=== PATIENT | female | born 1950 ===

== ENCOUNTER 2020-09-10 08:49 | Day surgery (SDC) | payer BC ==
[~2020-09-10] VITALS: Ht 157.5 cm; Wt 69.9 kg
[~2020-09-10 08:49] MED LIST: Flonase 0.05% N16 GM; GABA300 PO; LEFL20 PO; LOSARTAN-HCTZ1 EACH PO; METF500 PO; MONT10T PO; OCUVITE BLUE L1 EACH PO; ZOCOR20 MG PO
[2020-09-10] MEDS ORDERED: ALLEGRA ALLERG180 MG PO (09:37)
[2020-09-10] MEDS ORDERED: OMEPRAZOLE20 M1 (09:38)
--- NOTE | 2020-09-10 10:07 | NUR ---
Ambulatory in Day Surgery Patient states colon prep results clear. History, Chart, Medications and Allergies reviewed before start of procedure. Lungs clear T/O to Auscultation. Patient confirms NPO status and agrees with scheduled surgery. Patient States Post-Procedure ride home has been arranged.
--- NOTE | 2020-09-10 10:47 | NUR ---
09/10/20 [id number] Kamryn Mark History, Chart, Medications and Allergies reviewed before start of procedure. Patient confirms NPO status and agrees with scheduled surgery. 3-LEAD EKG REVIEWED WITH PHYSICIAN PRIOR TO START OF PROCEDURE. MONITOR INTACT WITH CONTINUOUS PULSE OXIMETRY AND INTERMITTENT BP. PATIENT DETERMINED TO BE ASA APPROPRIATE FOR PROPOFOL SEDATION PRIOR TO START OF PROCEDURE BY DR. PEREZ. HURRICAINE SPRAY TO BACK OF THROAT PER DR PEREZ ORDER.
--- NOTE | 2020-09-10 12:01 | NUR ---
Patient up to Ambulate independently. Gait steady. Discharge instructions reviewed with patient. Patient verbalizes understanding. Copy given to patient to take home. Patient States Post-Procedure ride home has been arranged, GETTING RIDE HOME FROM . Discharged via wheelchair to private car for ride home.
== END 2020-09-10 12:02 | disposition home or self-care (01) ==
LOC: ORSCMMR 08:49 → ORD 10:00 → ORSCMMR 12:02
PROVIDERS: Internal Medicine Gastroenterology
PROC: 0DB48ZX Excision of Esophagogastric Junction, Via Natural or Artificial Opening Endoscopic, Diagnostic (ICD-10-PCS; principal; 2020-09-10 10:00)
PROC: 0DB98ZX Excision of Duodenum, Via Natural or Artificial Opening Endoscopic, Diagnostic (ICD-10-PCS; principal; 2020-09-10 10:00)
PROC: 0DJD8ZZ Inspection of Lower Intestinal Tract, Via Natural or Artificial Opening Endoscopic (ICD-10-PCS; principal; 2020-09-10 10:00)
PROC: 0DB68ZX Excision of Stomach, Via Natural or Artificial Opening Endoscopic, Diagnostic (ICD-10-PCS; principal; 2020-09-10 10:00)
DX: D46.4 Refractory anemia, unspecified (principal); K29.80 Duodenitis without bleeding; K21.9 Gastro-esophageal reflux disease without esophagitis; K64.8 Other hemorrhoids; I10 Essential (primary) hypertension; M06.9 Rheumatoid arthritis, unspecified; E11.9 Type 2 diabetes mellitus without complications; E78.00 Pure hypercholesterolemia, unspecified; Z79.84 Long term (current) use of oral hypoglycemic drugs; Z79.899 Other long term (current) drug therapy
CPT/HCPCS: 82947; 88305; 88342; A9270; J2704; J7120

== ENCOUNTER → 2023-06-23 | Outpatient (CLI) | payer MEDICARE ==
[~2023-06-23] MED LIST changes: +ALLEGRA ALLERG180 MG PO; +OMEPRAZOLE20 M1
== END | disposition home or self-care (01) ==
LOC: LAB SHORT 07:46 → LAB 07:46
DX: L30.8 Other specified dermatitis (principal)
CPT/HCPCS: 88305